=== PATIENT | female | born 1950 | race Native Hawaiian/Other Pacific Islander ===

== ENCOUNTER 2016-09-13 10:32 | Outpatient (CLI) | payer OTHER ==
[2016-09-13 11:17] LABS: PLATELET COUNT 211 K/uL (152-353)
[2016-09-13 12:05] LABS: POTASSIUM 3.7 mmol/L (3.6-5.2); SODIUM 139 mmol/L (136-145)
== END 2016-09-13 22:04 | disposition home or self-care (01) ==
LOC: LABW 10:32 → CT 10:32 → LABW 22:04
PROVIDERS: Nurse Practitioner Family
DX: R10.84 Generalized abdominal pain (principal); R10.2 Pelvic and perineal pain
CPT/HCPCS: 36415; 80053; 81000; 85027; Q9963

== ENCOUNTER 2020-05-05 16:47 | Outpatient (CLI) | payer OTHER | END 2020-05-05 23:50 | disposition home or self-care (01) | LOC: LABW 16:47 | DX: E83.52 Hypercalcemia (principal) | CPT/HCPCS: 36415; 82310; 83970 ==

== ENCOUNTER 2021-08-20 20:15 | Emergency (ER) | payer OTHER ==
[~2021-08-20] VITALS: Ht 33 cm; Wt 0.5 kg
[2021-08-20 21:01] LABS: PLATELET COUNT 217 K/uL (152-353)
[2021-08-20 21:10] LABS: POTASSIUM 3.5 mmol/L (3.6-5.2)
[2021-08-20 22:34] VITALS: BP 128/73; TEMP 98.2
== END 2021-08-20 22:34 | disposition home or self-care (01) ==
LOC: ED 20:15
PROVIDERS: Emergency Medicine Emergency Medical Services
DX: U07.1 COVID-19 (principal); R55 Syncope and collapse
CPT/HCPCS: 36415; 80053; 81000; 84484; 85027; 87086; 87088; 93005; 96360; 96365; 96375; 99284; J0696; J1100; J2405

== ENCOUNTER 2022-06-14 23:12 | Emergency (ER) | payer OTHER ==
[~2022-06-14] VITALS: Ht 165.1 cm; Wt 81.2 kg
[2022-06-15 00:30] LABS: POTASSIUM 3.5 mmol/L (3.6-5.2)
[2022-06-15 00:52] LABS: PLATELET COUNT 193 K/uL (152-353)
[2022-06-15 01:56] VITALS: BP 124/77; TEMP 98.6
== END 2022-06-15 01:56 | disposition home or self-care (01) ==
LOC: ED 23:12
PROVIDERS: Emergency Medicine
DX: T42.6X5A Adverse effect of other antiepileptic and sedative-hypnotic drugs, initial encounter (principal); X58.XXXA Exposure to other specified factors, initial encounter; Y92.89 Other specified places as the place of occurrence of the external cause
CPT/HCPCS: 36415; 80053; 84484; 85027; 85610; 85730; 99283